=== PATIENT | male | born 1945 | race Caucasian/White ===

== ENCOUNTER 2021-06-14 21:16 | Emergency (ER) | payer MEDICARE, OTHER ==
[2021-06-14] MEDS ORDERED: NS IV 1000 ML 1,000 ML IV STA (21:35)
--- NOTE | 2021-06-14 21:44 | ED General ---
General Stated Complaint: WEAKNESS Source of Information: Patient, Family (daughter) History of Present Illness Date Seen by Provider: Jun 14, 2021 Time Seen by Provider: 21:19 Initial Comments 75 yo male with 2 weeks of symptoms of cough, shortness of breath, weakness and fatigue. His daughter spoke with her brother and discussed their dad's health and decided that he needed to be seen in the emergency department emergently tonight. There was no sudden change in his health or condition they just felt that 2 weeks was too long for him to feel like this. They had not gone to see his primary care physician. The daughter reports they had called the primary care provider in [place] and were told that he should just continue to take vitamins and stay hydrated and get rest. If he had worsening problems to go to the emergency department. The daughter was concerned because they just recently lost her grandfather to Covid and the patient was having some similar complaints. Also he had never been actually tested for Covid. 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 Patient currently denies any cough, nausea, chest pain, vomiting, diarrhea, pain with urination, headache, change in vision, abdominal pain. He states he just wants something to give him some energy. Associated Systoms: No Chest Pain, No Diaphoresis, No Fever/Chills, No Headaches; Loss of Appetite, Malaise; No Nausea/Vomiting, No Rash, No Seizure; Shortness of Air; No Syncope; Weakness Allergies and Home Medications Allergies Coded Allergies: No Known Drug Allergies (Unverified , 06/14/21) Patient Home Medication List Home Medication List Reviewed: Yes Azithromycin (Azithromycin) 500 Mg Tablet, 500 MG PO DAILY Prescribed by: KARLY BECERRA on 06/14/214 Prednisone (Prednisone) 20 Mg Tab, 40 MG PO DAILY Prescribed by: KARLY BECERRA on 06/14/21 6350 Review of Systems Review of Systems Constitutional: see HPI; No chills, No fever; malaise, weakness EENTM: nose congestion (Mild) Respiratory: see HPI Cardiovascular: No chest pain, No edema, No palpitations Gastrointestinal: No abdominal pain, No diarrhea, No nausea, No vomiting Genitourinary: No decreased output, No dysuria Musculoskeletal: no symptoms reported Skin: no symptoms reported Psychiatric/Neurological: Weakness (Generalized weakness and fatigue) Past Qpryhnh-Mmaugp-Adubjj Hx Past Medical History Cardiac: Yes Coronary Artery Disease, High Cholesterol, Hypertension Neurological: No Genitourinary: Yes Benign Prostatic Hyperpl Gastrointestinal: Yes Gastroesophageal Reflux Musculoskeletal: No Endocrine: No Physical Exam Vital Signs Vital Signs - First Documented 06/14/21 21:22 Temp 37.1 Pulse 89 Resp 20 B/P (MAP) 146/53 (84) Pulse Ox 99 O2 Delivery Room Air Capillary Refill : Height, Weight, BMI Height: '" Weight: lbs. oz. kg; BMI Method: General Appearance: No Apparent Distress, WD/WN HEENT: PERRL/EOMI, Pharynx Normal Neck: Full Range of Motion, Non Tender, Supple Respiratory: Chest Non Tender, Lungs Clear, Normal Breath Sounds, No Accessory Muscle Use, No Respiratory Distress Cardiovascular: Regular Rate, Rhythm, Normal Peripheral Pulses Gastrointestinal: Normal Bowel Sounds, No Pulsatile Mass, Non Tender, Soft Rectal: Deferred Extremity: Normal Capillary Refill, Normal Inspection, No Pedal Edema Neurologic/Psychiatric: Alert, Oriented x3, form maker II-XII Norm as Tested Skin: Normal Color, Warm/Dry Focused Exam Lactate Level 06/14/21 21:38: Lactic Acid Level 1.52 Lactic Acid Level Laboratory Tests Test 06/14/21 21:38 Lactic Acid Level 1.52 MMOL/L (0.50-2.00) Progress/Results/Core Measures Suspected Sepsis SIRS Temperature: Pulse: Respiratory Rate: Laboratory Tests 06/14/21 21:38: White Blood Count 7.9 Blood Pressure / Mean: 06/14/21 21:38: Lactic Acid Level 1.52 Laboratory Tests 06/14/21 21:38: Creatinine 0.95, INR Comment 1.0, Platelet Count 231, Total Bilirubin 0.5 Results/Orders Lab Results Laboratory Tests Test 06/14/21 21:38 06/14/21 21:42 06/14/21 22:20 Range/Units White Blood Count 7.9 4.3-11.0 10^3/uL Red Blood Count 4.90 4.30-5.52 10^6/uL Hemoglobin 15.4 13.3-17.7 g/dL Hematocrit 45 40-54 % Mean Corpuscular Volume 91 80-99 fL Mean Corpuscular Hemoglobin 31 25-34 pg Mean Corpuscular Hemoglobin Concent 35 32-36 g/dL Red Cell Distribution Width 13.9 10.0-14.5 % Platelet Count 231 130-400 10^3/uL Mean Platelet Volume 11.6 9.0-12.2 fL Immature Granulocyte % (Auto) 1 % Neutrophils (%) (Auto) 77 H 42-75 % Lymphocytes (%) (Auto) 11 L 12-44 % Monocytes (%) (Auto) 11 0-12 % Eosinophils (%) (Auto) 0 0-10 % Basophils (%) (Auto) 0 0-10 % Neutrophils # (Auto) 6.1 1.8-7.8 X 10^3 Lymphocytes # (Auto) 0.9 L 1.0-4.0 X 10^3 Monocytes # (Auto) 0.9 0.0-1.0 X 10^3 Eosinophils # (Auto) 0.0 0.0-0.3 10^3/uL Basophils # (Auto) 0.0 0.0-0.1 10^3/uL Immature Granulocyte # (Auto) 0.1 0.0-0.1 10^3/uL Neutrophils % (Manual) 73 % Lymphocytes % (Manual) 9 % Monocytes % (Manual) 10 % Eosinophils % (Manual) 0 % Basophils % (Manual) 0 % Myelocytes % 1 % Band Neutrophils 4 % Atypical Lymphocytes 3 % Blood Morphology Comment NORMAL Prothrombin Time 13.2 12.2-14.7 SEC INR Comment 1.0 0.8-1.4 Activated Partial Thromboplast Time 27 24-35 SEC D-Dimer 2.74 H 0.00-0.49 UG/ML Sodium Level 141 135-145 MMOL/L Potassium Level 4.2 3.6-5.0 MMOL/L Chloride Level 104 98-107 MMOL/L Carbon Dioxide Level 23 21-32 MMOL/L Anion Gap 14 5-14 MMOL/L Blood Urea Nitrogen 28 H 7-18 MG/DL Creatinine 0.95 0.60-1.30 MG/DL Estimat Glomerular Filtration Rate 78 BUN/Creatinine Ratio 29 Glucose Level 144 H 70-105 MG/DL Lactic Acid Level 1.52 0.50-2.00 MMOL/L Calcium Level 8.9 8.5-10.1 MG/DL Corrected Calcium 9.2 8.5-10.1 MG/DL Total Bilirubin 0.5 0.1-1.0 MG/DL Aspartate Amino Transf (AST/SGOT) 90 H 5-34 U/L Alanine Aminotransferase (ALT/SGPT) 110 H 0-55 U/L Alkaline Phosphatase 72 40-136 U/L Troponin I < 0.30 <0.30 NG/ML C-Reactive Protein 7.60 H <0.50 MG/DL Pro-B-Type Natriuretic Peptide 411.7 H <75.0 PG/ML Total Protein 7.3 6.4-8.2 GM/DL Albumin 3.6 3.2-4.5 GM/DL Urine Color YELLOW Urine Clarity CLEAR Urine pH 6.0 5-9 Urine Specific Hall 1.015 L 1.016-1.022 Urine Protein 1+ H NEGATIVE Urine Glucose (UA) NEGATIVE NEGATIVE Urine Ketones NEGATIVE NEGATIVE Urine Nitrite NEGATIVE NEGATIVE Urine Bilirubin NEGATIVE NEGATIVE Urine Urobilinogen 0.2 < = 1.0 MG/DL Urine Leukocyte Esterase NEGATIVE NEGATIVE Urine RBC (Auto) TRACE-I NEGATIVE Urine RBC 5-10 H /HPF Urine WBC 2-5 /HPF Urine Squamous Epithelial Cells 0-2 /HPF Urine Crystals NONE /LPF Urine Bacteria TRACE /HPF Urine Casts NONE /LPF Urine Mucus MODERATE H /LPF Urine Culture Indicated NO My Orders Orders - KARLY BECERRA MD Monitor-Rhythm Ecg Trace Only (06/14/21 21:33) Ed Iv/Invasive Line Start (06/14/21 21:33) Cbc With Automated Diff (06/14/21 21:33) Comprehensive Metabolic Panel (06/14/21 21:33) Crp Fs (06/14/21 21:33) Troponin I Fs (06/14/21 21:33) Protime With Inr (06/14/21 21:33) Partial Thromboplastin Time (06/14/21 21:33) Ekg Tracing (06/14/21 21:33) Probnp Fs (06/14/21 21:33) Coronavirus Sars-Cov-2 So 2018 (06/14/21 21:33) Ns Iv 1000 Ml (Sodium Chloride 0.9%) (06/14/21 21:35) Ua Culture If Indicated (06/14/21 21:36) Blood Culture (06/14/21 21:36) Lactic Acid Analyzer (06/14/21 21:36) Fibrin Degradation Products (06/14/21 21:38) Chest 1 View Ap/Pa Only (06/14/21 21:38) Manual Differential (06/14/21 21:38) Blood Culture (06/14/21 22:18) Ct Angio Chest W (06/14/21 22:29) Iohexol Injection (Omnipaque 350 Mg/Ml 1 (06/14/21 22:45) Received Contrast (Hold Metformin- Contr (06/14/21 22:45) Ns (Ivpb) (Sodium Chloride 0.9% Ivpb Bag (06/14/21 22:45) Albuterol Inhaler (Albuterol) (06/14/21 23:45) Dexamethasone Injection (Decadron Inje (06/14/21 23:38) Azithromycin Tablet (Zithromax Tablet) (06/14/21 23:38) Nursing Communication (Order) (06/14/21 23:38) Medications Given in ED Current Medications Medications Dose Ordered Sig/Willian Route Start Time Stop Time Status Last Admin Dose Admin Albuterol Sulfate 2 PUFFS RTQ4HR PRN IH 06/14/21 23:45 06/14/21 23:47 8.5 GM Iohexol 150 ml ONCE ONCE IV 06/14/21 22:45 06/14/21 22:46 DC 06/14/21 22:55 125 ML Sodium Chloride 100 ml ONCE ONCE IV 06/14/21 22:45 06/14/21 22:46 DC 06/14/21 22:56 80 ML Vital Signs/I&O 06/14/21 21:22 Temp 37.1 Pulse 89 Resp 20 B/P (MAP) 146/53 (84) Pulse Ox 99 O2 Delivery Room Air Capillary Refill : Progress Note #1: Progress Note Advised patient and daughter that his vital signs all looked okay annual 100% oxygen saturation on room air. With no specific symptoms currently other than just feeling fatigued and weak with some mild shortness of breath will do general testing to see if there was anything that showed up. We will try giving some IV fluids for hydration since he was reporting being thirsty. Patient may also drink water. He states that he drank at least a couple of large "tumblers" of ice tea today. Check ECG and CXR to see if there is a sign of pneumonia, effu j[place], [place]. Progress Note #2: Progress Note Electrocardiogram shows sinus rhythm with no acute ST elevation. There is no prior tracing for comparison. IV fluids infusing and other tests in process. Progress Note #3: Progress Note Labs show no elevation of WBC count but he does have some bands on differential. His Chemistry is negative for troponin elevation or acute electrolyte imbalance. Renal function normal. mild elevation of LFTs. CRP elevated and DDimer elevated. Lactic acid normal. CXR does show diffuse patchy infiltrate that could be related to COVID. However he continues to have O2 sats in 97-100% on room air. With elevated D dimer will check CT angiogram to ensure he does not have PE that would need treated. Progress Note #4: Progress Note CT angiogram of chest negative for PE but does show diffuse areas of ground glass appearance consistent with recent COVID pneumonia. As he is 2 weeks into symptoms and maintaining good O2 sat there was no indication for acute medical admit. Will offer Steroid and Z pack. If he wants to try Mucinex and inhaler for cough and shortness of breath can also offer that. Check back with pcp for further concerns. ECG Initial ECG Impression Date: Jun 14, 2021 Initial ECG Impression Time: 21:32 Initial ECG Rate: 79 Initial ECG Rhythm: Normal Sinus Initial ECG Comparisson: No Previous ECG Available Comment Normal sinus rhythm with a heart rate of 79 bpm. ID interval 112 ms. QT interval 397 ms with a QTc interval [address] elevation. No prior tracing available for comparison. Diagnostic Imaging Diagonstic Imaging: Xray Plain Films/CT/US/NM/MRI: chest Comments [facility] [place]. [place], [place] NAME: RICARDO MUNOZ [facility] REC#: [id number] PT STATUS: REG ER : 1945 PHYSICIAN: KARLY BECERRA MD ADMIT DATE: 06/14/21/ER FS Signed Date of Exam:06/14/21 CHEST 1 VIEW AP/PA ONLY EXAMINATION: Chest 1 view HISTORY: Weakness. Cough. Shortness of breath. COMPARISON: None available. FINDINGS: Scattered patchy opacities are seen throughout the lungs. The cardiac silhouette is prominent with post CABG changes. There is calcified aortic atherosclerotic plaque. No large pleural effusion or pneumothorax. IMPRESSION: 1. Scattered patchy opacities throughout the lungs, which may represent infection or edema. No pleural effusion. 2. Cardiomegaly. Dictated by: Dictated on workstation # [id number] Dict: 06/14/212215 Trans: 06/14/212226 [facility] [id number] Interpreted by: CHANTEL NIEVES DO Electronically signed by: CHANTEL NIEVES DO 06/14/212226 Reviewed: Reviewed by Me Diagonstic Imaging: CT Plain Films/CT/US/NM/MRI: chest Comments NAME: RICARDO MUNOZ REC#: [id number] PT STATUS: REG ER : 1945 PHYSICIAN: KARLY BECERRA MD ADMIT DATE: 06/14/21/ER FS Draft Date of Exam:06/14/21 CT ANGIO CHEST W PROCEDURE: CT angiography of the chest with contrast. TECHNIQUE: Multiple contiguous axial images were obtained through the chest after uneventful bolus administration of intravenous contrast. 3D reconstructed CTA MIP acquisitions were also performed. Auto Exposure Controls were utilized during the CT exam to meet ALARA standards for radiation dose reduction. INDICATION: Cough. Weakness. Elevated D-dimer. COMPARISON: Chest radiograph performed earlier the same day. FINDINGS: This helical CT pulmonary angiogram is diagnostic to the subsegmental level branches of the pulmonary artery and demonstrates no pulmonary emboli. Post-CABG changes are noted. No pericardial effusion. There is no pericardial effusion. There is no axillary, mediastinal, or hilar adenopathy. Groundglass and consolidative opacities are scattered throughout the lungs. No evidence of pulmonary mass. No central endobronchial or obstructing lesions. No pleural effusion or pneumothorax. Osseous structures appear normal. Small to moderate hiatal hernia is present. There is hepatic steatosis. IMPRESSION: 1. No acute pulmonary embolus. 2. Groundglass and consolidative opacities throughout the lungs, consistent with a history of Covid pneumonia. 3. Hepatic steatosis. 4. Small to moderate hiatal hernia. Dictated on workstation # [id number] Dict: 06/14/212304 Trans: 06/14/212309 [facility] [id number] Interpreted by: CHANTEL NIEVES DO Electronically signed by: Reviewed: Reviewed by Me Departure Impression Primary Impression: Malaise and fatigue Additional Impression: Person under investigation for severe acute respiratory syndrome coronavirus 2 (SARS-CoV-2) infection Disposition: 01 HOME, SELF-CARE Condition: Stable Departure-Patient Inst. Decision time for Depature: 23:40 Patient Instructions: Fatigue ED, How to Use a Metered Dose Inhaler ED, How to Use a Spacer, Recovery After COVID-19, Weakness ED Add. Discharge Instructions: Stay well hydrated and drink plenty of fluids. Take the full course of antibiotic and steroids to help with breathing and cough. This should also help with your energy and appetite. Use Mucinex to help with congestion and cough Use inhaler with spacer to help with cough and shortness of breath. Check back with your regular provider for continued concerns Scripts Prednisone (Prednisone) 20 Mg Tab 40 MG PO DAILY for short of breath/cough for 5 Days, #10 TAB 0 Refills Prov: KARLY BECERRA MD 06/14/21 Azithromycin (Azithromycin) 500 Mg Tablet 500 MG PO DAILY for 5 Days, #4 TAB 0 Refills 500 mg by mouth daily for 4 more days, first dose given Sunday Prov: KARLY BECERRA MD 06/14/21 KARLY BECERRA MD Jun 14, 2021 21:44
[2021-06-14 22:15] LABS: BASOPHILS % (AUTO) 0 % (0-10); EOSINOPHILS % (AUTO) 0 % (0-10); HEMATOCRIT 45 % (40-54); HEMOGLOBIN 15.4 g/dL (13.3-17.7); LYMPHOCYTES # (AUTO) 0.9 X 10^3 (1.0-4.0); LYMPHOCYTES % (AUTO) 11 % (12-44); MEAN CORPUSCULAR HEMOGLOBIN 31 pg (25-34); MEAN CORPUSCULAR HGB CONC 35 g/dL (32-36); MEAN CORPUSCULAR VOLUME 91 fL (80-99); MEAN PLATELET VOLUME 11.6 fL (9.0-12.2); MONOCYTES # (AUTO) 0.9 X 10^3 (0.0-1.0); MONOCYTES % (AUTO) 11 % (0-12); NEUTROPHILS # (AUTO) 6.1 X 10^3 (1.8-7.8); NEUTROPHILS % (AUTO) 77 % (42-75); PLATELET COUNT 231 10^3/uL (130-400); WHITE BLOOD COUNT 7.9 10^3/uL (4.3-11.0)
[2021-06-14 22:16] LABS: ATYPICAL LYMPHOCYTES 3 %; BAND NEUTROPHILS 4 %; BASOPHILS % (MANUAL) 0 %; EOSINOPHILS % (MANUAL) 0 %; LYMPHOCYTES % (MANUAL) 9 %; MONOCYTES % (MANUAL) 10 %; MYELOCYTES % 1 %; NEUTROPHILS % (MANUAL) 73 %
[2021-06-14 22:17] LABS: RBC MORPH NORMAL
[2021-06-14 22:18] LABS: BUN/CREATININE RATIO 29; CARBON DIOXIDE 23 MMOL/L (21-32); CHLORIDE 104 MMOL/L (98-107); CREATININE SERUM 0.95 MG/DL (0.60-1.30); GFR ESTIMATED 78; GLUCOSE 144 MG/DL (70-105); POTASSIUM 4.2 MMOL/L (3.6-5.0); PROTHROMBIN TIME PATIENT 13.2 SEC (12.2-14.7); SODIUM 141 MMOL/L (135-145)
[2021-06-14 22:19] LABS: ALANINE AMINOTRANSFERASE 110 U/L (0-55); ALBUMIN 3.6 GM/DL (3.2-4.5); ALKALINE PHOSPHATASE 72 U/L (40-136); BILIRUBIN,TOTAL 0.5 MG/DL (0.1-1.0); CALCIUM 8.9 MG/DL (8.5-10.1); TOTAL PROTEIN 7.3 GM/DL (6.4-8.2)
--- NOTE | 2021-06-14 22:27 | Diagnostic Imaging Report ---
EXAMINATION: Chest 1 view HISTORY: Weakness. Cough. Shortness of breath. COMPARISON: None available. FINDINGS: Scattered patchy opacities are seen throughout the lungs. The cardiac silhouette is prominent with post CABG changes. There is calcified aortic atherosclerotic plaque. No large pleural effusion or pneumothorax. IMPRESSION: 1. Scattered patchy opacities throughout the lungs, which may represent infection or edema. No pleural effusion. 2. Cardiomegaly. Dictated by: Dictated on workstation # [id number]
[2021-06-14 22:28] LABS: BILIRUBIN,URINE NEGATIVE (NEGATIVE); CLARITY,URINE CLEAR; COLOR,URINE YELLOW; GLUCOSE, URINE (UA) NEGATIVE (NEGATIVE); KETONES,URINE NEGATIVE (NEGATIVE); LEUKOCYTE ESTERASE ,URINE NEGATIVE (NEGATIVE); NITRITE,URINE NEGATIVE (NEGATIVE); PROTEIN,URINE 1+ (NEGATIVE)
[2021-06-14 22:35] LABS: BACTERIA,URINE TRACE /HPF; SQUAMOUS EPITHELIAL CELL,UR 0-2 /HPF
[2021-06-14] MEDS ORDERED: IOHEXOL 350 MG/ML 150 ML (OMNIPAQUE 350) VIAL IV ONE (22:45)
[2021-06-14] MEDS ORDERED: HOLD METFORMIN - RECEIVED CONTRAST 20 ML VIAL IV SCH (22:45)
[2021-06-14] MEDS ORDERED: NS 100 ML (IVPB) BAG IV ONE (22:45)
--- NOTE | 2021-06-14 23:12 | Diagnostic Imaging Report ---
PROCEDURE: CT angiography of the chest with contrast. TECHNIQUE: Multiple contiguous axial images were obtained through the chest after uneventful bolus administration of intravenous contrast. 3D reconstructed CTA MIP acquisitions were also performed. Auto Exposure Controls were utilized during the CT exam to meet ALARA standards for radiation dose reduction. INDICATION: Cough. Weakness. Elevated D-dimer. COMPARISON: Chest radiograph performed earlier the same day. FINDINGS: This helical CT pulmonary angiogram is diagnostic to the subsegmental level branches of the pulmonary artery and demonstrates no pulmonary emboli. Post-CABG changes are noted. No pericardial effusion. There is no pericardial effusion. There is no axillary, mediastinal, or hilar adenopathy. Groundglass and consolidative opacities are scattered throughout the lungs. No evidence of pulmonary mass. No central endobronchial or obstructing lesions. No pleural effusion or pneumothorax. Osseous structures appear normal. Small to moderate hiatal hernia is present. There is hepatic steatosis. IMPRESSION: 1. No acute pulmonary embolus. 2. Groundglass and consolidative opacities throughout the lungs, consistent with a history of Covid pneumonia. 3. Hepatic steatosis. 4. Small to moderate hiatal hernia. Dictated by: Dictated on workstation # [id number]
[2021-06-14] MEDS ORDERED: AZITHROMYCIN 250 MG TAB (ZITHROMAX) PO STA (23:38)
[2021-06-14] MEDS ORDERED: AZIT500T9 PO (23:43)
[2021-06-14] MEDS ORDERED: PRD20T PO (23:43)
[2021-06-14] MEDS ORDERED: RT-ALBUTEROL HFA 8.5 GM INHALER IH PRN (23:45)
[2021-06-14 23:55] VITALS: BP 138/62
== END 2021-06-14 23:55 | disposition home or self-care (01) ==
LOC: ER FS 21:18
DX: U07.1 COVID-19 (principal); R53.81 Other malaise; R53.83 Other fatigue; I10 Essential (primary) hypertension
CPT/HCPCS: 36415; 71045; 71275; 80053; 81000; 83605; 83880; 84484; 85007; 85027; 85379; 85610; 85730; 86141; 87040; 87635; 93005; 93041

== ENCOUNTER 2022-12-09 23:57 | Emergency (ER) | payer MEDICARE ==
[~2022-12-09] VITALS: Ht 180.3 cm; Wt 87.7 kg
[~2022-12-09 23:57] MED LIST: AZIT500T9 PO; PRD20T PO
[2022-12-10] VITALS: BP 184/82
[2022-12-10] MEDS ORDERED: FAMOTIDINE 20MG/2ML IV (PEPCID) IVP STA (00:07)
[2022-12-10] MEDS ORDERED: methylPREDNISolone 125 MG (Solu-MEDROL) VIAL IVP STA (00:07)
--- NOTE | 2022-12-10 00:14 | ED Integumentary General ---
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 He has a long standing history of allergic reactions and states they have not been able to pinpoint triggers for him. He took 75 mg of diphenhydramine over the last hour and it was helping by the time he arrived in the ED. He states usually he would just try to treat this with diphenhydramine at home but he was worried that this episode was coming on so fast and he felt like he was having trouble breathing. He has a history of hypertension and low back pain. He had an epidural injection last week for back pain. He denies any new medicines, foods, lotions, detergents, soaps, colognes. He was just resting at home when his symptoms came on for him. Timing/Duration: this evening Severity: moderate Location: generalized Possible Cause: no cause identified Modifying Factors: improves with antihistamine (75 mg of diphenhydramine was helping with his symptoms by the time he arrived in the ED) Associated Symptoms: No blisters, No edema, No fever, No flushing, No headache; hives; No malaise, No nasal congestion, No numbness, No pallor, No paresthesia, No petechiae, No sore throat, No swelling/mass/lumps, No tingling Allergies and Home Medications Allergies Coded Allergies: No Known Drug Allergies (Unverified , 06/14/21) Patient Home Medication List Home Medication List Reviewed: Yes Azithromycin (Azithromycin) 500 Mg Tablet, 500 MG PO DAILY Prescribed by: KARLY BECERRA on 06/14/212342 Prednisone (Prednisone) 20 Mg Tab, 40 MG PO DAILY Prescribed by: KARLY BECERRA on 06/14/21 935 Review of Systems Review of Systems Constitutional: No chills, No fever EENTM: no symptoms reported Respiratory: see HPI Cardiovascular: no symptoms reported Gastrointestinal: no symptoms reported Genitourinary: no symptoms reported Musculoskeletal: no symptoms reported Skin: see HPI, rash (generalized hives) Psychiatric/Neurological: No Symptoms Reported Past Sueqxoq-Utocic-Zrahky Hx Patient Social History Tobacco Use?: No Past Medical History Surgery/Hospitalization HX: Hypertension, Recurrent allergic reactions, Low back pain Cardiac: Yes Coronary Artery Disease, High Cholesterol, Hypertension Neurological: No Genitourinary: Yes Benign Prostatic Hyperpl Gastrointestinal: Yes Gastroesophageal Reflux Musculoskeletal: No Endocrine: No Physical Exam Vital Signs Vital Signs - First Documented 12/10/22 00:00 Temp 36.7 Pulse 86 Resp 18 B/P (MAP) 184/82 (116) Pulse Ox 96 O2 Delivery Room Air Capillary Refill : General Appearance: WD/WN, other (anxious) HEENT: PERRL/EOMI, pharynx normal Neck: non-tender, full range of motion, supple, normal inspection Cardiovascular: normal peripheral pulses, regular rate, rhythm Respiratory: chest non-tender, lungs clear, normal breath sounds; No stridor, No wheezing Extremities: normal range of motion, non-tender, normal capillary refill Neurologic/Psychiatric: alert, oriented x 3 Skin: warm/dry, rash (diffuse hives) Progress/Results/Core Measures Results/Orders My Orders Orders - KARLY BECERRA MD Methylprednisolone Sod Succ (Solu-Medrol (12/10/22 00:07) Famotidine Injection (Pepcid Injection) (12/10/22 00:07) Ed Iv/Invasive Line Start (12/10/22 00:07) Vital Signs/I&O 12/10/22 00:00 Temp 36.7 Pulse 86 Resp 18 B/P (MAP) 184/82 (116) Pulse Ox 96 O2 Delivery Room Air Progress Progress Note #1: Progress Note Will obtain peripheral IV access and administer Solumedrol 125 mg IV along with Famotidine 20 mg IV to try and work with the Diphenhydramine 75 mg he has taken over the last hour. Will monitor here over the next 30 minutes to an hour and provided he is improving in his symptoms will discharge to home on steroid burst and continued benadryl. Progress Note #2: Time: 00:34 Progress Note patient got up to use the restroom and states he feels the itching and breathing is continuing to improve since he got the medicines here in ED. Will discharge to home with plan to continue home benadryl 25 to 50 mg po every 4 hours prn itching/rash, pepcid or famotidine 20 mg every 12 hours for next 3 days and pr ednisone 40 mg a day for 3 days. Continue to work with pcp for continued concerns. Departure Impression Primary Impression: Allergic reaction Qualified Codes: T78.40XA - Allergy, unspecified, initial encounter Additional Impression: Hives Disposition: 01 HOME, SELF-CARE Condition: Improved Departure-Patient Inst. Decision time for Depature: 00:36 Referrals: NO,LOCAL PHYSICIAN (PCP/Family) Primary Care Physician Patient Instructions: Allergic Reaction ED Add. Discharge Instructions: Continue with Diphenhydramine (Benadryl) 25 to 50 mg every 4 hours as needed for rash/itching. Continue on Prednisone for next 3 days to help with allergy symptoms of rash, itching and shortness of breath. Over the counter you may also take Famotidine (Pepcid) as an antihistamine to help with itching and rash. Check back with your primary care provider for continued concerns. All discharge instructions reviewed with patient and/or family. Voiced understanding. Scripts Famotidine (Famotidine) 20 Mg Tablet 20 MG PO BID for allergic reaction for 3 Days, #6 TAB 0 Refills Prov: KARLY BECERRA MD 12/10/22 Prednisone (Prednisone) 20 Mg Tab 40 MG PO DAILY for allergic reaction for 3 Days, #6 TAB 0 Refills Prov: KARLY BECERRA MD 12/10/22 KARLY BECERRA MD Dec 10, 2022 00:14
[2022-12-10] MEDS ORDERED: FAMO20TA5 PO (00:38)
[2022-12-10] MEDS ORDERED: PRD20T PO (00:38)
== END 2022-12-10 00:51 | disposition home or self-care (01) ==
LOC: EDUNIT# 23:57 → ER FS 12-10 00:02
DX: L50.0 Allergic urticaria (principal)
CPT/HCPCS: 99282